=== PATIENT | female | born 1980 | race Caucasian/White ===

== ENCOUNTER 2024-08-26 07:02 | Emergency (ER) | payer MEDICAID, OTHER ==
[~2024-08-26] VITALS: Ht 162.6 cm; Wt 90.9 kg
[2024-08-26 07:06] VITALS: TEMP 98.4
[2024-08-26 07:19] LABS: COVID AG,FIA SOURCE NASAL SWAB
[2024-08-26 07:39] LABS: SARS-COV2 (COVID) ANTIGEN,FIA Negative (Negative)
[2024-08-26 07:40] LABS: INFLUENZA TYPE A NEGATIVE FOR TYPE A (NEGATIVE); INFLUENZA TYPE B NEGATIVE FOR TYPE B (NEGATIVE)
[2024-08-26 08:18] VITALS: BP 142/88; PULSE 76; RESP 16; O2SAT 98
[2024-08-26] MEDS ORDERED: AMOX500C2 PO (08:32)
[2024-08-26] MEDS: OXYMETAZOLINE HCL 0.05% 15 ML NASAL SPRAY NASAL ONE (08:40)
== END 2024-08-26 09:20 | disposition home or self-care (01) ==
LOC: EMS 07:07
DX: J32.9 Chronic sinusitis, unspecified (principal); I10 Essential (primary) hypertension; F15.90 Other stimulant use, unspecified, uncomplicated; Z90.49 Acquired absence of other specified parts of digestive tract; Z20.822 Contact with and (suspected) exposure to COVID-19
CPT/HCPCS: 71045; 87804; 99284